=== PATIENT | female | born 1935 | race Caucasian/White ===

== ENCOUNTER → 2017-02-15 | Outpatient (CLI) | payer OTHER ==
[~2017-02-15] MED LIST: AMOXICILLIN 50500 MG PO; ASPIRIN325 PO; AVALIDE 300-251 EACH PO; AVAPRO300 MG PO; CALCIUM 600 WI1 EAC5 PO; FENTANYL PA25 MCG/HR TD; FISH OIL 1,0001 EAC5 PO; FOSAMAX 70 MG T70 M1 PO; HYDROCHLOROTHIA25 M1 PO; IRON325 PO; LORTAB PO; MULTIVITAMINS PO; NEURONTIN 300300 M1 PO; NORCO 5-325 TA1 EACH PO; PERCOCET 5-3251 EACH PO; RELAFEN500 MG; VALIUM2 MG PO; ZOCOR40 MG PO
== END ==
LOC: RAD 01:42
DX: Z12.31 Encounter for screening mammogram for malignant neoplasm of breast (principal)

== ENCOUNTER → 2018-02-21 | Outpatient (CLI) | payer OTHER | LOC: RAD 11:00 | DX: Z12.31 Encounter for screening mammogram for malignant neoplasm of breast (principal) ==

== ENCOUNTER 2018-10-12 12:30 | Inpatient (IN) | payer OTHER ==
[~2018-10-12] VITALS: Ht 160 cm; Wt 69.4 kg
[2018-10-12 12:32] VITALS: BP 167/80
[2018-10-12 15:49] LABS: ABSOLUTE NEUTROPHILS 7.3 thou/uL (1.4-8.2); BASOPHILS 0.7 % (0.0-2.0); EOSINOPHILS 1.4 % (0.0-3.0); HEMATOCRIT 36.7 % (37.0-47.0); HEMOGLOBIN 12.4 gm/dL (12.0-15.0); MCH 29.6 pg (26.0-34.0); MCHC 33.8 g/dL (28.0-37.0); MCV 87.6 fL (80.0-100.0); MONOCYTES 8.6 % (1.0-8.0); PLATELET COUNT 282 thou/uL (150-400); POLYS 71.3 % (36.0-66.0); RBC 4.19 mil/uL (4.20-5.00); WBC 10.3 thou/uL (4.0-11.0)
[2018-10-12 15:54] LABS: CALCIUM 9.9 mg/dL (8.5-10.1); CREATININE 1.4 mg/dL (0.6-1.0); POTASSIUM 3.1 mmol/L (3.5-5.1)
[2018-10-12 16:53] VITALS: BP 200/81
[2018-10-12] MEDS ORDERED: ZOHYDRO ER15 M1 PO (17:06)
[2018-10-12] MEDS ORDERED: CARVEDILOL3.125 MG PO (17:07)
[2018-10-12 17:18] VITALS: BP 188/65
[2018-10-12 18:15] VITALS: BP 188/61
--- NOTE | 2018-10-12 19:23 | NUR ---
PT ARRIVED FROM ER THIS EVENING. EDUCATION, ASSESSMENT AND HX COMPLETE, ORDERS IMPLEMENTED. PT BP WAS ELEVATED ON ARRIVAL, HOWEVER 18:40 READING WAS 129/44. PT RESTING COMFORTABLY.
[2018-10-12 19:51] VITALS: BP 135/54
--- NOTE | 2018-10-13 03:26 | NUR ---
progress pt had a couple of falls and injured both legs. Pt has titanium hardware in both legs and something is broken on the left leg, pt reports pain up the left side of her spine, xrays ordered. taking hydrocodone for pain with effect. able to assist in repositioning and using bedpan for tolieting needs. npo after midnight pending possible repair.
[2018-10-13 06:35] VITALS: BP 130/55
[2018-10-13 07:27] VITALS: BP 157/55
--- NOTE | 2018-10-13 08:23 | EKG ---
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 : 1935 Requested By: Seth Cash Order Number: [id number] MD: Micky Guevara Measurements Intervals [place] Rate: 63 P: 153 VA: 130 QRS: -49 QRSD: 177 T: 119 QT: 465 QTc: 477 Interpretive Statements A-V dual-paced rhythm with some inhibition No further analysis attempted due to paced rhythm Compared to ECG 02/04/2012 10:01:33 No significant change was found Electronically Signed On 10-13-2018 8:22:54 CDT by Micky Guevara [email or web address] ��������������������������������������������� <ELECTRONICALLY SIGNED> ���������������������������������������� By: Micky Guevara MD, [facility] ��������������������������������������������� 10/13/18 0822 1458 1458 Micky Guevara MD, [facility] /EPI
--- NOTE | 2018-10-13 08:35 | NUR ---
ORDERS RECEIVED FOR EVAL AND TREAT. Pt SUSTAINED FALL AND WAS FOUND TO HAVE FRACTURE OF DISTAL FIXATION SCREW OF FEMORAL NUBIA AND POSSIBLE LOOSENING. WILL HOLD PT UNTIL FURTHER POC DETERMINED. WILL NEED UPDATED ORDERS REGARDING ACTIVITY STATUS AND WEIGHTBEARING POST-OP/WHEN POC DETERMINED.
--- NOTE | 2018-10-13 10:53 | NUR ---
PATIENT WITH FRACTURE OF DISTAL FIXATION SCREW OF FEMORAL NUBIA ON LLE. O.T. WILL PLACE PATIENT ON HOLD UNTIL FURTHER PLAN OF CARE IS DETERMINED. O.T. WILL INITIATE THERPAY ONCE NEW ORDERS ARE RECEIVED.
--- NOTE | 2018-10-13 12:04 | NUR ---
PT ADMITTED RELATED TO FRACTURED FEMUR. CM REVIEWED CAHRT AND SPOKE WITH CARE TEAM. CM MET WITH PT AT BEDSIDE THIS DAY. PT IS A&O X4. CM ROLE INTRODUCED. PT INDICATED SHE LIVES IN A HOUSE ALONE WITH 1 STEP TO ENTER AND 13 STEPS INSIDE. 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 PT INDICATED SHE WOULD BE RECEPTIVE TO POST ACUTE CARE STAY IF INDICATED UPON DC. CM PROVIDED SNF LIST FOR REVIEW. AWAITING WHERE PT WOULD LIKE REFERRALS SENT. CM TO FOLLOW INDICATED WITH DC PLANNING.
[2018-10-13 15:09] VITALS: BP 168/53
--- NOTE | 2018-10-13 16:25 | NUR ---
DISCHARGE PLANNING. ANTICIPATED DISCHARGE FOR TOMORROW. HOME HEALTH SERVICES RECOMMENDED AT DISCHARGE. PATIENT REQUESTS REFERRAL FAXED TO [facility] FOR HOME HEALTH NEEDS. REFERRAL FAXED TO [facility], INTAKE LIAISON. CALL PLACED TO [place] TO NOTIFY OF PATIENTS REFERRAL AND ANTICIPATED DISCHARGE FOR TOMORROW. [facility] CONTACT NUMBER IS FAX . SHOULD PATIENT BE CLEARED FOR DISCHARGE WITH HOME HEALTH ORDERS COMPLETED, PLEASE FAX DISCHARGE ORDERS TO ABOVE FAX NUMBER AND CONTACT [facility] TO NOTIFY. THANK YOU.
--- NOTE | 2018-10-13 16:33 | NUR ---
CARE TEAM INDICATED THAT PT IS MEDICALLY STABLE TO DISCHARGE HOME TOMORROW Tuesday10/14/18. CM ATTEMPTED TO VISIT WITH PT REGARDING HER HOME HEALTH PROVIDER PREFERENCE. CM CALLED AND [facility] AND [facility] BOTH GO TO [place]. REFERRAL SENT TO [facility]. CARE TEAM INDICATED THAT PT IS MEDICALLY STABLE TO DISHCARGE TOMORROW FAX DISCHARGE PAPERWORK TO . NO OTHER CM INTERVENTION INDICATED AT THIS TIME. CASE CLOSED.
--- NOTE | 2018-10-13 17:38 | NUR ---
PT VITAL SIGNS STABLE THROUGHOUT SHIFT. PT C/O PAIN THROUGHOUT SHIFT, TREATED WITH MEDICATION. PT UP TO CHAIR WHICH SHE TOLERATED WELL. FAMILY IN TO VISIT, PLAN FOR DISCHARGE TOMORROW WITH HOME HEALTH.
[2018-10-13 19:16] VITALS: BP 219/80
[2018-10-14 00:45] VITALS: BP 181/74
--- NOTE | 2018-10-14 02:25 | NUR ---
PROGRESS PT PROGRESSING TOWARDS GOAL. HIP FRACTURE IS TO BE TREATED CONSERVATIVELY SURGEON SUGGESTED SPINAL FUSION. PT/OT ORDERED TO CONTINUE AT HOME. PAIN CONTROLLED WITH HYDROCODONE, FLEXIRIL, AND GABAPENTIN. BP ELEVATED SEE FLOWSHEET, 100 MG LOSARTAN GIVEN AND BP RECHECKED IN AN HOUR BP LOWER BUT STILL HIGH PT STATES SHE NORMALLY TAKES HER MEDS AT NOON. VERBALIZED DISAPPOINTED AT SUGGESTION OF SPINAL FUSION, BUT WANTS TO GO HOME WITH HOME HEALTH AND THERAPY.
--- NOTE | 2018-10-14 05:31 | NUR ---
PATIENT SLEPT PART OF THE NIGHT AND IS AOX4. PATIENT WOKEN TO TO BE TRANSFERRED TO . NO OTHER CONCERNS AT THIS TIME. PATIENT TO BE DISCHARGED IN THE AM.
--- NOTE | 2018-10-14 06:01 | NUR ---
PT TRANSFERED FROM 4W 0550. PT ALERT AND ORIENTED. 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 AGREE WITH PREVIOUS NURSE ASSESSMENT. BLE EDEMA NOTED. WILL CONTINUE POC UNTIL EOS.
[2018-10-14 06:08] VITALS: BP 182/66
--- NOTE | 2018-10-14 07:37 | HC ---
[facility] [place] [address] CONSULTATION Name: FELICITY,KATRINA TURNER Room #: 421-P [facility] IN M.R.#: [id number] Admission: 10/12/18 ������������������ Attend Phys: Lu Lee Discharge: ������������������ Date of : 34 Report #: [id number] THIS REPORT FOR: //name// [facility] HISTORY OF PRESENT ILLNESS: This still very active and fully independent 83-year-old female presents with recent increase in her chronic low back pain. She has a history of 2 previous decompressive lumbar laminectomy surgeries and has evidence of some chronic progressive degenerative lumbar spondylosis and spondylolisthesis causing some back pain and radiculopathy in the past. She notes she has been on chronic pain medication directed by her pain physician and is managing this adequately and remains functional and fully independent and moderately active. She also has a history of a previous left femur fracture, treated with an intramedullary claudio about 10 years ago. She has some mild achy discomfort in the left femur, but this is also manageable. Those symptoms have not changed at all in the recent past. She apparently had a minor fall at home 2-3 weeks ago when she was working in her garden picking up sticks. She did not have major discomfort at that point. Her back symptoms have gradually advanced over the past week or two. These are principally in the left low back extending toward the left hip and buttock region. She is, however, still ambulatory and symptoms are managed with her current oral pain medications. She was seen here in the Emergency Room, and x-rays of the left femur revealed the fracture in the subtrochanteric region, which is not fully healed and well placed intramedullary claudio with a fractured screw at the distal aspect. The proximal screw fixation remains intact at the femur and fracture appeared to be stable. CT scan of the lumbar spine reveals old decompression surgery and a grade 2 spondylolisthesis at L4-L5, which causes moderate foraminal stenosis bilaterally at that level. At the time of my evaluation, she is alert and seems comfortable and is able to move about in bed and get in and out of bed on her own with only minor pain. She states her principal area of discomfort is the left low back with some extension toward the left buttock, but she denies any significant radiating leg pain, numbness or weakness. She states the left femur feels no different now than it has for the past year or two. The left femur demonstrates good range of motion without significant joint discomfort in either the hip or the knee. The femur seems stable. There is mild tenderness at the distal lateral femur where she has a slightly prominent fixation screw. The low back reveals old well-healed surgical scars and mild generalized discomfort in the left low lumbar region extending out toward the left buttock and posterolateral thigh region. Symptoms are aggravated by movement, but there is no objective clinical evidence of instability. [address] [address] CONSULTATION Name: OLMAN BLEVINSOTHY TURNER Room #: 421-P ADM IN M.R.#: [id number] Admission: 10/12/18 ������������������ Attend Phys: Lu Lee Discharge: ������������������ Date of : 34 Report #: [id number] In general summary, this patient's symptoms seem to be related to her chronic degenerative lumbar spondylosis and previous decompression with now some spinal instability at L4-L5 with associated foraminal stenosis and nerve root impingement. There is no evidence of a new fracture. There is no compression fracture. The degenerative changes appear to be largely unchanged. I see nothing which would suggest further surgical decompression would be helpful or appropriate. If these symptoms become more severe and progressive, then at some point, she might consider a decompression combined with a fusion at the L4-L5 level. Today, she is clearly not interested in such an approach and will continue with conservative medical management for her chronic back pain. 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 I see no need to do anything with the left femur, so long as her symptoms are mild and manageable. I am happy to see her back in my office at any point if symptoms become more severe. Thank you for allowing me to participate in her care. ��������������������������������������������� <ELECTRONICALLY SIGNED> ���������������������������������������� By: Gabe Le MD ��������������������������������������������� 10/14/18 0737 0917 0052 Gabe Le MD /nt
[2018-10-14] MEDS ORDERED: NEURONTIN 300300 M1 PO (10:02)
[2018-10-14] MEDS ORDERED: PREDNISONE 20 M20 MG PO (10:03)
[2018-10-14] MEDS ORDERED: FLEXERIL PO (10:03)
[2018-10-14 11:08] VITALS: BP 182/66
--- NOTE | 2018-10-14 13:40 | NUR ---
Assumed pt care at 7am.Pt in and out of bed to bathroom with cane and standby assist.Assessment completed.vss.Pt tolerated meds and diet.Dr Lee here,dc order noted.Dc summary compiled and reviewed with pt and family.Davis medrano dc'd.At 1245,pt dc'd home in with family accomapnied by this rn.
== END 2018-10-14 12:45 | disposition home or self-care (01) | DRG 560 ==
LOC: ER 12:30 → 4W 16:22 → EROBS 16:22 → 4W 17:27 → 4E 10-14 05:43
PROVIDERS: Physician Assistant; ADMIT Hospitalist
DX: T84.115A Breakdown (mechanical) of internal fixation device of left femur, initial encounter (principal); N17.9 Acute kidney failure, unspecified; I16.0 Hypertensive urgency; M54.5 Low back pain; M48.00 Spinal stenosis, site unspecified; Z60.2 Problems related to living alone; K59.00 Constipation, unspecified; E87.6 Hypokalemia; N18.9 Chronic kidney disease, unspecified; G89.29 Other chronic pain; Z90.710 Acquired absence of both cervix and uterus; Z90.49 Acquired absence of other specified parts of digestive tract; Z95.0 Presence of cardiac pacemaker; Z95.820 Peripheral vascular angioplasty status with implants and grafts; Z88.1 Allergy status to other antibiotic agents; Z88.8 Allergy status to other drugs, medicaments and biological substances; Z87.891 Personal history of nicotine dependence; Z47.89 Encounter for other orthopedic aftercare; W18.39XA Other fall on same level, initial encounter; Y93.89 Activity, other specified; Y92.89 Other specified places as the place of occurrence of the external cause; Y99.8 Other external cause status
CPT/HCPCS: 10040

== ENCOUNTER → 2019-03-02 | Outpatient (CLI) | payer OTHER ==
[~2019-03-02] MED LIST changes: +CARVEDILOL3.125 MG PO; +FLEXERIL PO; +PREDNISONE 20 M20 MG PO; +ZOHYDRO ER15 M1 PO
== END ==
LOC: RAD 02:38
DX: Z12.31 Encounter for screening mammogram for malignant neoplasm of breast (principal)

== ENCOUNTER → 2019-07-10 | Outpatient (CLI) | payer OTHER ==
--- NOTE | 2019-07-10 16:51 | 2DMMODE ---
[facility] [place] [address] 2 D/M-MODE ECHOCARDIOGRAM Name: FELICITYKATRINA TURNER [id number] Admission: 07/10/19 Attend Phys: Larissa Gómez, Discharge: Date of : 34 Report #: [id number] THIS REPORT FOR: //name// APPROVED REPORT Study performed: 07/10/2019 13:26:19 EXAM: Comprehensive 2D, Doppler, and color-flow Echocardiogram Patient Location: Out-Patient Room #: Echo lab 2 Status: routine BSA: 1.72 HR: 81 bpm BP: 142/78 mmHg Rhythm: Pacemaker Other Information Study Quality: Good Indications Pacemaker Hypertension/HDD Edema 2D Dimensions RVDd: 40.00 mm LVEF(%): 60.00 (>50%) IVSd: 10.00 (7-11mm) LVDd: 50.00 mm PWd: 11.00 (7-11mm) LVDs: 30.00 (25-40mm) Aortic Root: 26.00 mm IVC: 19.00 mm Volumes Left Atrial Volume (Systole) LA ESV Index: 39.00 mL/m2 Aortic Valve AoV Peak Redd.: 1.70 m/s AO Peak Gr.: 11.75 mmHg Mitral Valve MV E Max Redd.: 1.39 m/s Tricuspid Valve PA Pressure: 51.00 mmHg [facility] [address] [place] [address] 2 D/M-MODE ECHOCARDIOGRAM Name: KATRINA BLEVINS TURNER Room #: REG [facility]CLUDES [facility].#: [id number] Admission: 07/10/19 Attend Phys: Larissa Gómez, Discharge: Date of : 34 Report #: [id number] Left Ventricle The left ventricle is normal size. There is normal LV segmental wall motion. There is normal left ventricular wall thickness. The left ventricular systolic function is normal. The left ventricular ejection fraction is within the normal range. LVEF is 55-60%. This study is not technically sufficient to allow evaluation of the LV diastolic function. Right Ventricle The right ventricle is normal size. The right ventricular systolic function is normal. Pacemaker lead is present in the right ventricle. Atria Left atrium is moderately dilated. Right atrium is dilated. Pacemaker lead is present in the right atrium. Aortic Valve The aortic valve is normal in structure. No aortic regurgitation is present. There is no aortic valvular stenosis. Mitral Valve The mitral valve is normal in structure. Moderate mitral regurgitation. No evidence of mitral valve stenosis. Tricuspid Valve The tricuspid valve is normal in structure. There is moderate tricuspid regurgitation. Estimated PAP 55 mmHg. Pulmonic Valve The pulmonary valve is normal in structure. There is no pulmonic valvular regurgitation. Great Vessels The aortic root is normal in size. IVC is normal in size and collapses >50% with inspiration. Pericardium There is no pericardial effusion. <Conclusion> LVEF is 55-60%. Left atrium is moderately dilated. Right atrium is dilated. Pacemaker lead is present in the right atrium. [facility] [address] [place] [address] 2 D/M-MODE ECHOCARDIOGRAM Name: OLMAN BLEVINSOTHY TURNER Room #: REG MONA Snowden#: [id number] Admission: 07/10/19 Attend Phys: Larissa Gómez, Discharge: Date of : 34 Report #: [id number] Moderate mitral regurgitation. There is moderate tricuspid regurgitation. Estimated PAP 55 mmHg. <ELECTRONICALLY SIGNED> By: Gabe Meade MD, FACC 07/10/191649 49 49 Gabe Meade MD, FACC /INF
== END ==
LOC: CV 12:49
DX: I08.1 Rheumatic disorders of both mitral and tricuspid valves (principal); Z95.0 Presence of cardiac pacemaker

== ENCOUNTER 2020-11-30 12:17 | Emergency (ER) | payer OTHER ==
[~2020-11-30] VITALS: Ht 160 cm; Wt 68.0 kg
[2020-11-30 16:10] VITALS: BP 122/79
== END 2020-11-30 16:10 | disposition home or self-care (01) ==
LOC: ER 12:17
DX: M54.42 Lumbago with sciatica, left side (principal); Z90.49 Acquired absence of other specified parts of digestive tract; Z90.710 Acquired absence of both cervix and uterus; N18.30 Chronic kidney disease, stage 3 unspecified; Z88.8 Allergy status to other drugs, medicaments and biological substances; Z88.1 Allergy status to other antibiotic agents; Z88.5 Allergy status to narcotic agent; Z87.891 Personal history of nicotine dependence; Z79.899 Other long term (current) drug therapy

== ENCOUNTER → 2020-12-09 | Outpatient (CLI) | payer OTHER ==
[~2020-12-09] MED LIST changes: +CARVEDILOL12.5 MG PO; +DEMADEX20 MG PO; +FISH OIL 1,001000 M2 PO; +FOSAMAX 70 MG T70 MG PO; +TIZANIDINE HCL4 M2 PO
== END ==
LOC: SJCVCIMAG 13:41 → SJCVC 13:41
PROVIDERS: ATTEND Internal Medicine Cardiovascular Disease
DX: I08.8 Other rheumatic multiple valve diseases (principal); I27.20 Pulmonary hypertension, unspecified; I13.0 Hypertensive heart and chronic kidney disease with heart failure and stage 1 through stage 4 chronic kidney disease, or unspecified chronic kidney disease; N18.2 Chronic kidney disease, stage 2 (mild); I50.32 Chronic diastolic (congestive) heart failure; E78.00 Pure hypercholesterolemia, unspecified; I44.2 Atrioventricular block, complete; I65.23 Occlusion and stenosis of bilateral carotid arteries; I73.9 Peripheral vascular disease, unspecified; R07.9 Chest pain, unspecified; J44.9 Chronic obstructive pulmonary disease, unspecified; M81.0 Age-related osteoporosis without current pathological fracture; E78.5 Hyperlipidemia, unspecified; M19.90 Unspecified osteoarthritis, unspecified site; Z95.820 Peripheral vascular angioplasty status with implants and grafts; Z95.0 Presence of cardiac pacemaker; Z90.49 Acquired absence of other specified parts of digestive tract; Z90.710 Acquired absence of both cervix and uterus; Z88.8 Allergy status to other drugs, medicaments and biological substances; Z88.5 Allergy status to narcotic agent; Z79.82 Long term (current) use of aspirin; Z79.899 Other long term (current) drug therapy; Z87.891 Personal history of nicotine dependence; Z82.49 Family history of ischemic heart disease and other diseases of the circulatory system

== ENCOUNTER 2020-12-16 21:03 | Inpatient (IN) | payer OTHER ==
[~2020-12-16] VITALS: Ht 160 cm; Wt 68.0 kg
[2020-12-16 21:03] VITALS: BP 141/43
[~2020-12-16 21:03] MED LIST changes: -CARVEDILOL12.5 MG PO; -DEMADEX20 MG PO; -FISH OIL 1,001000 M2 PO; -FOSAMAX 70 MG T70 MG PO; -TIZANIDINE HCL4 M2 PO
[2020-12-16 22:05] LABS: HEMATOCRIT 31.6 % (37.0-47.0); HEMOGLOBIN 10.6 gm/dL (12.0-15.0); MCH 30.2 pg (26.0-34.0); MCHC 33.5 g/dL (28.0-37.0); MCV 90.3 fL (80.0-100.0); PLATELET COUNT 177 thou/uL (150-400); RDW 14.6 % (10.5-14.5); WBC 14.2 thou/uL (4.0-11.0)
[2020-12-16 22:11] LABS: CALCIUM 8.3 mg/dL (8.5-10.1); CREATININE 3.1 mg/dL (0.6-1.0); POTASSIUM 3.8 mmol/L (3.5-5.1)
[2020-12-16 22:21] LABS: ALBUMIN 2.6 g/dL (3.4-5.0); TOTAL BILIRUBIN 1.7 mg/dL (0.2-1.0); TOTAL PROTEIN 6.3 g/dL (6.4-8.2); TROPONIN-I 0.08 ng/mL (<0.06)
[2020-12-16 22:42] LABS: ABSOLUTE NEUTROPHILS 12.4 thou/uL (1.4-8.2)
[2020-12-16 22:43] LABS: ANISOCYTOSIS 1+; PLATELET ESTIMATE NORMAL; POIKILOCYTOSIS 1+
[2020-12-16] MEDS ORDERED: TIZANIDINE HCL4 M2 PO (23:10)
[2020-12-16] MEDS ORDERED: DEMADEX20 MG PO (23:10)
[2020-12-16] MEDS ORDERED: FISH OIL 1,001000 M2 PO (23:11)
[2020-12-16] MEDS ORDERED: CARVEDILOL12.5 MG PO (23:11)
[2020-12-16] MEDS ORDERED: FOSAMAX 70 MG T70 MG PO (23:11)
--- NOTE | 2020-12-17 07:15 | EKG ---
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 : 1935 Requested By: Bassam Okeefe Order Number: [id number] MD: Eddie Zaman Measurements Intervals [place] Rate: 68 P: 19 CT: 167 QRS: -59 QRSD: 159 T: 100 QT: 421 QTc: 448 Interpretive Statements Atrial-sensed ventricular-paced rhythm No further analysis attempted due to paced rhythm Compared to ECG 10/12/2018 14:58:50 No significant changes Electronically Signed On 12-17-2020 7:15:08 CDT by Eddie Zaman [email or web address] <ELECTRONICALLY SIGNED> By: Eddie Zaman MD, [facility] 12/17/2015 28 28 Eddie Zaman MD, FACC /EPI
[2020-12-17 07:59] LABS: HEMATOCRIT 29.8 % (37.0-47.0); HEMOGLOBIN 10.1 gm/dL (12.0-15.0); MCH 30.6 pg (26.0-34.0); MCHC 33.9 g/dL (28.0-37.0); MCV 90.4 fL (80.0-100.0); PLATELET COUNT 148 thou/uL (150-400); RBC 3.29 mil/uL (4.20-5.00); RDW 14.7 % (10.5-14.5); WBC 11.5 thou/uL (4.0-11.0)
[2020-12-17 08:16] LABS: CALCIUM 8.6 mg/dL (8.5-10.1); CREATININE 3.2 mg/dL (0.6-1.0); MAGNESIUM 1.7 mg/dL (1.8-2.4); PHOSPHORUS 3.3 mg/dL (2.6-4.7); POTASSIUM 3.7 mmol/L (3.5-5.1)
--- NOTE | 2020-12-17 08:20 | NUR ---
DR CONROY AT BEDSIDE
[2020-12-17 09:06] VITALS: BP 152/48
[2020-12-17 09:53] LABS: ABSOLUTE NEUTROPHILS 9.1 thou/uL (1.4-8.2); ANISOCYTOSIS SLIGHT; ATYPICAL LYMPHS 3 %
[2020-12-17 09:54] LABS: LARGE PLATELETS OCCASIONAL
--- NOTE | 2020-12-17 10:19 | 2DMMODE ---
[address] [address] 2 D/M-MODE ECHOCARDIOGRAM Name: KATRINA BLEVINS TURNER Room #: 170-9 ADM IN M.R.#: [id number] Admission: 12/16/20 Attend Phys: Alvaro Fernandez MD Discharge: Date of : 34 Report #: [id number] THIS REPORT FOR: cc: Maris Fierro MD, Paula V. MD Lammoglia, Francisco J. MD ~ APPROVED REPORT Study performed: 12/17/2020 09:27:14 EXAM: Comprehensive 2D, Doppler, and color-flow Echocardiogram Patient Location: ER Room #: 9 Status: routine BSA: 1.71 HR: 74 bpm BP: 152/48 mmHg Rhythm: Pacemaker Other Information Study Quality: Good Indications Congestive Heart Failure Dyspnea Pacemaker Hypertension/HDD 2D Dimensions IVC: 21.00 mm Pulmonary Valve PV Peak Redd.: 0.88 m/s PV Peak Gr.: 3.08 mmHg Tricuspid Valve TR Peak Redd.: 4.04 m/s TR Peak Gr.: 65.20 mmHg PA Pressure: 75.00 mmHg Left Ventricle The left ventricle is normal size. There is normal left ventricular wall thickness. Left ventricular systolic function is borderline. LVEF is 50%. This study is not technically sufficient to allow evaluation of the LV diastolic function. [address] [place] [address] 2 D/M-MODE ECHOCARDIOGRAM Name: KATRINA BLEVINS Room #: 170-9 ADM IN M.R.#: [id number] Admission: 12/16/20 Attend Phys: Alvaro Fernandez MD Discharge: Date of : 34 Report #: [id number] Right Ventricle Right ventricle is at the upper limits of normal. The right ventricular systolic function is normal. Pacemaker lead is present in the right ventricle. Atria Left atrium is dilated. Right atrium is dilated. Pacemaker lead is present in the right atrium. Aortic Valve The aortic valve is normal in structure. The Aortic valve is sclerotic. No aortic regurgitation is present. There is no aortic valvular stenosis. Mitral Valve The mitral valve is normal in structure. At least Moderate mitral regurgitation with eccentric jet. No evidence of mitral valve stenosis. Tricuspid Valve The tricuspid valve is normal in structure. There is moderate tricuspid regurgitation. Estimated PAP 75 mmHg. There is severe pulmonary hypertension. Pulmonic Valve The pulmonary valve is normal in structure. Great Vessels The aortic root is normal in size. IVC is dilated and collapses <50% with inspiration. Pericardium There is no pericardial effusion. <Conclusion> The left ventricle is normal size. LVEF is 50%. Right ventricle is at the upper limits of normal. The right ventricular systolic function is normal. Pacemaker lead is present in the right ventricle. Left atrium is dilated. Right atrium is dilated. Pacemaker lead is present in the right atrium. The aortic valve is normal in structure. The Aortic valve is sclerotic. [facility] [address] [place] [address] 2 D/M-MODE ECHOCARDIOGRAM Name: KATRINA BLEVINS TURNER Room #: 170-9 ADM IN M.R.#: [id number] Admission: 12/16/20 Attend Phys: Alvaro Fernandez MD Discharge: Date of : 34 Report #: [id number] The mitral valve is normal in structure. At least Moderate mitral regurgitation with eccentric jet. The tricuspid valve is normal in structure. There is moderate tricuspid regurgitation. Estimated PAP 75 mmHg. There is severe pulmonary hypertension. The pulmonary valve is normal in structure. The aortic root is normal in size. There is no pericardial effusion. <ELECTRONICALLY SIGNED> By: Suleiman Florez MD 12/17/20 1019 1019 101 Suleiman Florez MD /INF
[2020-12-17 11:35] VITALS: BP 152/48
[2020-12-17 12:33] VITALS: BP 152/48
[2020-12-17 12:56] VITALS: BP 135/44
[2020-12-17 16:01] VITALS: BP 121/60
--- NOTE | 2020-12-17 16:15 | NUR ---
PATIENT ADMITTED TO ROOM 219 AT 1300 THIS SHIFT. PATIENT A/O X4, NEURO CHECKS COMPLETED, PATIENT AMBULATED X1 STANDBY ASSIST TO BATHROOM. INFORMED PATIENT AND SON THAT PATIENT IS A HIGH FALL RISK AND EXPLAINED PROTOCOL. PATIENT AND SON VERBALIZE UNDERSTANDING. BRUISES NOTED TO LEFT FOREHEAD DOWN TO LOWER CHEEK. NO OTHER SKIN ISSUES NOTED. VSS.
[2020-12-17 19:45] VITALS: BP 148/70
[2020-12-18 07:48] LABS: CALCIUM 8.1 mg/dL (8.5-10.1); CREATININE 3.5 mg/dL (0.6-1.0); POTASSIUM 4.3 mmol/L (3.5-5.1); TROPONIN-I 0.21 ng/mL (<0.06)
[2020-12-18 07:50] VITALS: BP 148/82
[2020-12-18 11:35] LABS: HEMATOCRIT 31.2 % (37.0-47.0); MCH 30.3 pg (26.0-34.0); MCHC 33.4 g/dL (28.0-37.0); MCV 90.5 fL (80.0-100.0); RBC 3.45 mil/uL (4.20-5.00); RDW 14.7 % (10.5-14.5)
[2020-12-18 11:38] VITALS: BP 123/70
[2020-12-18 12:43] LABS: HEMOGLOBIN 10.4 gm/dL (12.0-15.0)
--- NOTE | 2020-12-18 13:15 | NUR ---
ORDERS FOR OT EVAL AND TREAT RECEIVED, CHART REVIEWED. OBSERVED PT. AMBULATING IN HALLWAY WITH SPC WITH FAMILY MEMBER. EXPLAINED ROLE OF OT, PT. DECLINES EVALUATION PT. REPORTS SHE FEELS SHE IS AT HER BASELINE AND DOES NOT WANT TO HAVE THERAPY SERVICES. OT SIGNING OFF.
[2020-12-18 15:21] VITALS: BP 137/63
--- NOTE | 2020-12-18 16:39 | NUR ---
Case opened to follow for dc planning. Pay Agent visited with the pt and her son Carlos at bedside. She is a&ox4 and indep prior to admission. She lives alone in [place]. Son is very involved and available as needed. She has one step into the home and can stay on the main level. She does use her basement steps (13) to do laundry. She has a cane that she uses outside the home and a rwalker in storage if needed. She is being seen by cardiology and renal. The pt's severe electrolyte imbalance is being treated and believe to be from recent medication changes. PT/OT evals in progress. The pt is open to hh if needed and denies a preference. She is normally very indep. Will follow.
[2020-12-18 20:15] VITALS: BP 169/70
[2020-12-19 02:38] LABS: HEMATOCRIT 27.1 % (37.0-47.0); HEMOGLOBIN 9.3 gm/dL (12.0-15.0); MCHC 34.4 g/dL (28.0-37.0); MCV 90.1 fL (80.0-100.0); RBC 3.01 mil/uL (4.20-5.00); RDW 14.5 % (10.5-14.5); WBC 10.5 thou/uL (4.0-11.0)
[2020-12-19 03:22] LABS: CALCIUM 7.8 mg/dL (8.5-10.1); MAGNESIUM 1.7 mg/dL (1.8-2.4); POTASSIUM 3.5 mmol/L (3.5-5.1)
[2020-12-19 03:47] VITALS: BP 149/68
[2020-12-19 08:00] VITALS: BP 187/80
[2020-12-19 12:15] VITALS: BP 164/70
[2020-12-19 13:31] LABS: ABSOLUTE NEUTROPHILS 4.3 thou/uL (1.4-8.2); ABSOLUTE RETIC COUNT 0.0594 10^6/uL; BASOPHILS 0.5 % (0.0-2.0); EOSINOPHILS 1.6 % (0.0-3.0); HEMATOCRIT 26.7 % (37.0-47.0); HEMOGLOBIN 8.7 gm/dL (12.0-15.0); LYMPHOCYTES 6.5 % (24.0-44.0); MCH 30.5 pg (26.0-34.0); MCHC 32.6 g/dL (28.0-37.0); MCV 93.4 fL (80.0-100.0); OBSERVED RETIC COUNT 2.08 % (0.6-2.6); POLYS 84.4 % (36.0-66.0); RBC 2.85 mil/uL (4.20-5.00); RDW 16.5 % (10.5-14.5); WBC 5.1 thou/uL (4.0-11.0)
[2020-12-19 13:34] LABS: PLATELET COUNT 254 thou/uL (150-400)
[2020-12-19 13:39] LABS: % SATURATION 119 % (20-39); IRON 151 ug/dL (50-170); TIBC 127 ug/dL (250-450)
[2020-12-19 14:06] LABS: FERRITIN 775 ng/mL (8-252)
[2020-12-19 15:20] VITALS: BP 166/70
[2020-12-19 17:37] VITALS: BP 166/70
--- NOTE | 2020-12-19 17:38 | NUR ---
YAMILETH held today d/t low hgb and GI consulted. The attending met with the pt/son to discuss her plan of care. [facility] can accept at pr for nursing and therapy at home and service the pt's address in [place]. Please fax pr summary and instructions to Radha at pr [phone] and call their oncall nurse [phone].
[2020-12-19 21:40] VITALS: BP 147/54
[2020-12-19 23:28] LABS: URINE BILIRUBIN NEGATIVE (Negative); URINE BLOOD TRACE (Negative); URINE CLARITY SL CLOUDY; URINE COLOR YELLOW; URINE GLUCOSE-RANDOM* NEGATIVE (Negative); URINE KETONES NEGATIVE (Negative); URINE PROTEIN (DIPSTICK) NEGATIVE (Negative); URINE UROBILINOGEN 0.2 E.U./dl (0.2-1.0)
[2020-12-19 23:31] LABS: URINE LEUKOCYTES-REFLEX 2+ (Negative); URINE NITRITE-REFLEX POSITIVE (Negative)
[2020-12-19 23:57] LABS: CASTS None Seen /LPF (None Seen); MUCUS 0-3 Light strn/LPF (None Seen); SQUAMOUS None Seen /LPF (0-3); URINE RBC 3-10 Few /HPF (NONE SEEN)
[2020-12-19 23:58] LABS: BACTERIA-REFLEX >30 Many /HPF (None Seen); CRYSTALS None Seen /LPF (None Seen)
[2020-12-20 04:18] LABS: ALBUMIN 2.1 g/dL (3.4-5.0); CALCIUM 7.9 mg/dL (8.5-10.1); CREATININE 2.8 mg/dL (0.6-1.0); MAGNESIUM 1.7 mg/dL (1.8-2.4); PHOSPHORUS 2.9 mg/dL (2.5-4.9); POTASSIUM 3.9 mmol/L (3.5-5.1); TOTAL BILIRUBIN 0.5 mg/dL (0.2-1.0); TOTAL PROTEIN 5.9 g/dL (6.4-8.2)
[2020-12-20 04:23] LABS: ABSOLUTE NEUTROPHILS 7.9 thou/uL (1.4-8.2); BASOPHILS 0.6 % (0.0-2.0); EOSINOPHILS 1.9 % (0.0-3.0); HEMATOCRIT 26.8 % (37.0-47.0); HEMOGLOBIN 8.9 gm/dL (12.0-15.0); MCH 30.2 pg (26.0-34.0); MCHC 33.3 g/dL (28.0-37.0); MCV 90.6 fL (80.0-100.0); MONOCYTES 14.9 % (1.0-8.0); PLATELET COUNT 199 thou/uL (150-400); POLYS 70.6 % (36.0-66.0); RBC 2.96 mil/uL (4.20-5.00); RDW 14.9 % (10.5-14.5); WBC 11.2 thou/uL (4.0-11.0)
[2020-12-20 04:45] VITALS: BP 151/69
--- NOTE | 2020-12-20 06:17 | NUR ---
ASSESSMENTS CHARTED, MEDS CHARTED GIVEN. CHRONIC BACK PAIN, MEDS GIVEN AVAILABLE. URINE SAMPLE SHOWED POSITIVE FOR BACTERIA, ANTIBIOTICS STARTED. PLAN IS FOR PATIENT TO FOLLOW UP WITH AN OUTPATIENT COLONOSCOPY. FALL PRECAUTIONS IN PLACE DURING SHIFT.
[2020-12-20 08:20] VITALS: BP 152/73
[2020-12-20] MEDS ORDERED: CEPHALEXIN500 MG PO (11:41)
[2020-12-20] MEDS ORDERED: ASA81BEC PO (11:41)
[2020-12-20 12:24] VITALS: BP 143/51
--- NOTE | 2020-12-20 12:43 | NUR ---
KAYLA faxed D/C summary, instructions, and final med list to [facility] [phone]. Medical team advised No further needs identified
[2020-12-20 12:44] VITALS: BP 166/70
[2020-12-20] MEDS ORDERED: ZOFRAN 4 MG ORAL4 MG PO (13:49)
[2020-12-20 14:03] VITALS: BP 166/70
--- NOTE | 2020-12-20 14:42 | NUR ---
ASSESSMENT CHARTED - MEDS PER AUG - PT GIVEN HYDOCODONE FOR CO'S OF BACK PAIN WITH MOD RELIEF. UP TO THE BATHROOM -STEADY ON FEET. PT WITH SLIGHT SOB WITH EXERTION. PT WITH CO'S OF NAUSEA - GIVEN ZOFRAN WITH MOD EFFECT - NAUSEA REPORTED TO DR DILLON - SHE INFORMED PATIENT THAT SHE WOULD LIKE HER TO STAY UNTI TOMORROW - PT STATED THAT NO SHE WATED TO GO HOME - PRESCRIPTION FOR ZOFRAN GIVEN. PT HOME THIS AFTERNOON - INSTRUCTION RE HOME MEDS/ CARE AND FOLLOW GIVEN -PT GIVEN A HAT AND OCCULT CARD AND HAT TO COLLECT SPECIMEN - INSTRUCTED ON HOW TO COLLECT. LEFT UNIT VIA WHEELCHAIR - HOME VIA PVT VEHICLE ACCOMAPNIED BY SON - NO CO'S AT TIME OF D/C.
== END 2020-12-20 15:30 | disposition home health service (06) | DRG 291 ==
LOC: ER 21:03 → EROBS 23:20 → 2N 23:20
PROVIDERS: Emergency Medicine; Internal Medicine; Nurse Practitioner; ADMIT Internal Medicine; ATTEND Internal Medicine
DX: I13.0 Hypertensive heart and chronic kidney disease with heart failure and stage 1 through stage 4 chronic kidney disease, or unspecified chronic kidney disease (principal); I50.33 Acute on chronic diastolic (congestive) heart failure; N17.9 Acute kidney failure, unspecified; E87.1 Hypo-osmolality and hyponatremia; I44.2 Atrioventricular block, complete; N39.0 Urinary tract infection, site not specified; S09.90XA Unspecified injury of head, initial encounter; S70.01XA Contusion of right hip, initial encounter; S70.02XA Contusion of left hip, initial encounter; I25.10 Atherosclerotic heart disease of native coronary artery without angina pectoris; N18.30 Chronic kidney disease, stage 3 unspecified; G89.29 Other chronic pain; E78.00 Pure hypercholesterolemia, unspecified; I73.9 Peripheral vascular disease, unspecified; I27.20 Pulmonary hypertension, unspecified; E87.6 Hypokalemia; R53.81 Other malaise; M54.5 Low back pain; E86.0 Dehydration; D64.9 Anemia, unspecified; Z90.710 Acquired absence of both cervix and uterus; Z90.49 Acquired absence of other specified parts of digestive tract; Z95.0 Presence of cardiac pacemaker; Z88.6 Allergy status to analgesic agent; Z88.1 Allergy status to other antibiotic agents; Z88.8 Allergy status to other drugs, medicaments and biological substances; Z82.49 Family history of ischemic heart disease and other diseases of the circulatory system; Z87.891 Personal history of nicotine dependence; Z79.82 Long term (current) use of aspirin; Z79.899 Other long term (current) drug therapy; Z95.820 Peripheral vascular angioplasty status with implants and grafts; Z80.0 Family history of malignant neoplasm of digestive organs; W18.39XA Other fall on same level, initial encounter; Y93.89 Activity, other specified; Y92.89 Other specified places as the place of occurrence of the external cause; Y99.8 Other external cause status
CPT/HCPCS: 10081

== ENCOUNTER → 2020-12-25 | Outpatient (CLI) | payer OTHER ==
[~2020-12-25] MED LIST changes: +ASA81BEC PO; +CARVEDILOL12.5 MG PO; +CEPHALEXIN500 MG PO; +DEMADEX20 MG PO; +FISH OIL 1,001000 M2 PO; +FOSAMAX 70 MG T70 MG PO; +TIZANIDINE HCL4 M2 PO; +ZOFRAN 4 MG ORAL4 MG PO
== END ==
LOC: SJCVC 13:20
PROVIDERS: ATTEND Internal Medicine Cardiovascular Disease
DX: I13.0 Hypertensive heart and chronic kidney disease with heart failure and stage 1 through stage 4 chronic kidney disease, or unspecified chronic kidney disease (principal); N18.2 Chronic kidney disease, stage 2 (mild); I50.32 Chronic diastolic (congestive) heart failure; I73.9 Peripheral vascular disease, unspecified; E78.5 Hyperlipidemia, unspecified; J44.9 Chronic obstructive pulmonary disease, unspecified; I27.20 Pulmonary hypertension, unspecified; Z95.0 Presence of cardiac pacemaker; Z81.0 Family history of intellectual disabilities; Z87.11 Personal history of peptic ulcer disease; Z79.82 Long term (current) use of aspirin; Z79.899 Other long term (current) drug therapy; Z87.891 Personal history of nicotine dependence; Z72.89 Other problems related to lifestyle; Z88.5 Allergy status to narcotic agent; Z88.1 Allergy status to other antibiotic agents; Z88.8 Allergy status to other drugs, medicaments and biological substances; Z88.2 Allergy status to sulfonamides

== ENCOUNTER → 2021-01-05 | Outpatient (CLI) | payer OTHER | LOC: SJCVC 11:23 | PROVIDERS: ATTEND Internal Medicine Cardiovascular Disease | DX: I11.0 Hypertensive heart disease with heart failure (principal); I50.30 Unspecified diastolic (congestive) heart failure; I73.9 Peripheral vascular disease, unspecified; I65.23 Occlusion and stenosis of bilateral carotid arteries; E78.00 Pure hypercholesterolemia, unspecified; E78.5 Hyperlipidemia, unspecified ==

== ENCOUNTER → 2021-02-10 | Outpatient (CLI) | payer OTHER | LOC: SJCVCIMAG 09:58 | PROVIDERS: ATTEND Internal Medicine Cardiovascular Disease | DX: I08.8 Other rheumatic multiple valve diseases (principal); I27.20 Pulmonary hypertension, unspecified; I49.3 Ventricular premature depolarization; R06.00 Dyspnea, unspecified; R53.1 Weakness; E78.00 Pure hypercholesterolemia, unspecified; I50.30 Unspecified diastolic (congestive) heart failure; I44.2 Atrioventricular block, complete; I13.0 Hypertensive heart and chronic kidney disease with heart failure and stage 1 through stage 4 chronic kidney disease, or unspecified chronic kidney disease; N18.2 Chronic kidney disease, stage 2 (mild); E78.5 Hyperlipidemia, unspecified; M81.0 Age-related osteoporosis without current pathological fracture; J44.9 Chronic obstructive pulmonary disease, unspecified; M19.90 Unspecified osteoarthritis, unspecified site; I73.9 Peripheral vascular disease, unspecified; Z90.49 Acquired absence of other specified parts of digestive tract; Z95.0 Presence of cardiac pacemaker; Z90.710 Acquired absence of both cervix and uterus; Z88.5 Allergy status to narcotic agent; Z88.8 Allergy status to other drugs, medicaments and biological substances; Z79.82 Long term (current) use of aspirin; Z79.899 Other long term (current) drug therapy; Z87.891 Personal history of nicotine dependence; Z82.49 Family history of ischemic heart disease and other diseases of the circulatory system ==

== ENCOUNTER → 2021-04-08 | Outpatient (CLI) | payer OTHER | LOC: BC 11:48 | PROVIDERS: ATTEND Family Medicine | DX: Z12.31 Encounter for screening mammogram for malignant neoplasm of breast (principal) ==

== ENCOUNTER → 2021-08-18 | Outpatient (CLI) | payer OTHER ==
[~2021-08-18] VITALS: Ht 154.9 cm; Wt 64.4 kg
[~2021-08-18] MED LIST changes: +LASIX 40 MG TAB40 MG PO
[2021-08-18 09:48] LABS: HEMATOCRIT 37.7 % (37.0-47.0); HEMOGLOBIN 12.2 gm/dL (12.0-15.0); MCH 27.1 pg (26.0-34.0); MCHC 32.3 g/dL (28.0-37.0); MCV 83.9 fL (80.0-100.0); RBC 4.49 mil/uL (4.20-5.00); RDW 15.2 % (10.5-14.5); WBC 6.4 thou/uL (4.0-11.0)
[2021-08-18 09:50] VITALS: BP 186/87
[2021-08-18 09:57] LABS: CALCIUM 9.4 mg/dL (8.5-10.1); POTASSIUM 3.8 mmol/L (3.5-5.1)
--- NOTE | 2021-08-21 12:33 | CATHLAB ---
[facility] [address] [place] [address] INVASIVE PROCEDURE REPORT Name: FELICITYKATRINA TOMPKINS Room #: REG YUKI Snowden#: [id number] Admission: 08/18/21 Attend Phys: Suleiman Florez Discharge: Date of : 33 Report #: [id number] THIS REPORT FOR: cc: Maris Fierro MD, Paula V. MD Lammoglia, Francisco J. MD ~ APPROVED REPORT Study performed: 08/18/2021 15:30:10 Patient Status: Out-Patient Room #: Event Personnel: Suleiman Florez MD Exam: Generator Change for a Dual Chamber Permanent Pacemaker Indications: End of life, SSS, AV Block The patient is a 86 year-old female with a history of SSS and AV Block. Conscious Sedation 25 mg Demoral IVP Implanted Devices: [employer]: Generator; Model #: W3DR01; Serial #: [id number]; Use by: 01/07/2023 Explanted Devices: [employer]: Generator; Model #: VEDR01; Serial #: [id number] Procedure The patient underwent informed consent. We discussed the details of the procedure including the risks, which include, but not limited to bleeding, infection, vascular damage, cardiac perforation, and pneumothorax. She understood these risks and was willing to proceed. As such, she was brought to the EP/Cardiac Catheterization laboratory in a fasting and sedated state and prepped and draped in a The patient underwent conscious sedation, with no related complications. The patient was brought to the EP/Cardiac Catheterization laboratory and the left chest and shoulder were prepped and draped in a sterile manner. IV conscious sedation was used throughout procedure with appropriate monitoring and was performed in the presence of a registered nurse who was an independent trained observer other than the physician performing the procedure. [address] [address] INVASIVE PROCEDURE REPORT Name: KATRINA BLEVINS Room #: REG [facility].#: [id number] Admission: 08/18/21 Attend Phys: Suleiman Krause Discharge: Date of : 33 Report #: [id number] The left subclavian region was infiltrated with 2% Lidocaine subcutaneous anesthesia. A transverse incision was made in the left upper chest cavity. Electrode Parameters P Wave: 1.5V R Wave: 2.25V Atrial Threshold: 0.4ms @ 0.75V Ventricular Threshold: 0.4ms @ 1.25V Atrial Resistance: 456 Ohms Ventricular Resistance: 418 Ohms Generator Change The generator change was then secured using nonabsorbable sutures. The subcutaneous pocket was irrigated with ancef antibiotic solution.The lead was attached to the appropriate receptacle on the new pulse generator and setscrews firmly tightened to insure adequate contact and stability. The lead and pulse generator were placed into the subcutaneous pocket. Sharp and sponge counts were confirmed to be correct. At this time the pocket was closed subcutaneously with a 2 oh nonabsorbable suture in a running locking stitch and the skin was closed with a 3-0 absorbable suture in a subcuticular stitch. The operative site was dressed in sterile fashion with Steri-Strips 4 x 4 OpSite and the patient was transferred to the floor in stable condition. Complications The patient tolerated the procedure well and there were no complications associated with the procedure. Findings Estimated Blood Loss: 5 cc Conclusion 1. Successful generator change of a dual-chamber pacemaker Recommendations 1. Routine post generator change protocol <ELECTRONICALLY SIGNED> By: Suleiman Florez MD 08/21/21 1232 [id number] Suleiman Florez MD /INF
== END | disposition home or self-care (01) ==
LOC: CATH 08-13 09:07
PROVIDERS: ATTEND Internal Medicine
DX: Z45.010 Encounter for checking and testing of cardiac pacemaker pulse generator [battery] (principal); I49.5 Sick sinus syndrome; I44.30 Unspecified atrioventricular block; I13.0 Hypertensive heart and chronic kidney disease with heart failure and stage 1 through stage 4 chronic kidney disease, or unspecified chronic kidney disease; N18.30 Chronic kidney disease, stage 3 unspecified; I50.9 Heart failure, unspecified; Z98.890 Other specified postprocedural states; Z79.899 Other long term (current) drug therapy; Z90.710 Acquired absence of both cervix and uterus; Z90.49 Acquired absence of other specified parts of digestive tract; Z79.82 Long term (current) use of aspirin; Z88.8 Allergy status to other drugs, medicaments and biological substances